=== PATIENT | male | born 1960 | race Caucasian/White ===

== ENCOUNTER 2018-05-09 06:32 | Emergency (ER) | payer OTHER ==
[~2018-05-09] VITALS: Ht 182.9 cm; Wt 59.0 kg
[~2018-05-09 06:32] MED LIST: ATIVAN1 MG PO; COL100 PO; CYCLOBENZAPRINE5 MG PO; HEP5I SC; LORAZEPAM1 MG PO; NEU300 PO; NIC21 TD; NOR10T PO; ZES10 PO; ZOFRAN4 MG PO
[2018-05-09 06:40] VITALS: Ht 182.9 cm; Wt 59.0 kg
[2018-05-09 07:20] VITALS: BP 148/101
== END 2018-05-09 07:20 | disposition home or self-care (01) ==
LOC: ED 06:32
DX: M54.12 Radiculopathy, cervical region (principal); F17.210 Nicotine dependence, cigarettes, uncomplicated; I10 Essential (primary) hypertension; G89.29 Other chronic pain; M54.5 Low back pain; Z98.890 Other specified postprocedural states; Z88.8 Allergy status to other drugs, medicaments and biological substances

== ENCOUNTER 2019-03-11 06:47 | Emergency (ER) | payer OTHER ==
[~2019-03-11] VITALS: Ht 182.9 cm; Wt 54.0 kg
[2019-03-11 11:34] VITALS: BP 152/88
== END 2019-03-11 11:35 | disposition home or self-care (01) ==
LOC: ED 06:47
DX: H61.22 Impacted cerumen, left ear (principal); I10 Essential (primary) hypertension; G89.29 Other chronic pain; F10.10 Alcohol abuse, uncomplicated

== ENCOUNTER 2020-06-15 21:01 | Emergency (ER) | payer OTHER ==
[~2020-06-15] VITALS: Ht 182.9 cm; Wt 52.7 kg
[2020-06-15 21:16] VITALS: Ht 182.9 cm; Wt 52.7 kg
[2020-06-15 21:49] LABS: BASOPHIL % 1.5 % (0-2); PLATELET COUNT 229 x10^3mcL (130-400); RED CELL DISTRIBUTION WIDTH 13.9 % (11.5-14.5)
[2020-06-15 22:00] LABS: CALCIUM 8.7 mg/dL (8.5-10.1); CARBON DIOXIDE 30.2 mmol/L (21-32); CHLORIDE SERUM 105 mmol/L (98-107); CREATININE SERUM 1.1 mg/dL (0.7-1.3); GFR1 > 60 mL/min; GLUCOSE SERUM 129 mg/dL (74-106); POTASSIUM SERUM 3.8 mmol/L (3.5-5.1); SODIUM SERUM 136 mmol/L (136-145)
[2020-06-15 22:04] LABS: ALBUMIN 3.6 g/dL (3.4-5.0); ALKALINE PHOSPHATASE 91 U/L (46-116); ALT/SGPT 15 U/L (16-63); AST/SGOT 18 U/L (15-37); TOTAL PROTEIN, SERUM 6.4 g/dL (6.4-8.2)
[2020-06-15 22:15] LABS: microscopic required? NO
[2020-06-15 22:20] LABS: urine erythrocyte NEGATIVE (NEGATIVE)
[2020-06-15 23:04] VITALS: BP 138/85
== END 2020-06-15 23:04 | disposition home or self-care (01) ==
LOC: ED 21:01
PROVIDERS: Emergency Medicine
DX: I16.0 Hypertensive urgency (principal); F17.210 Nicotine dependence, cigarettes, uncomplicated; G89.29 Other chronic pain; F10.10 Alcohol abuse, uncomplicated; Z98.890 Other specified postprocedural states; Z88.7 Allergy status to serum and vaccine
CPT/HCPCS: 99406